=== PATIENT | female | born 1945 | race Caucasian/White ===

== ENCOUNTER → 2019-08-29 | Outpatient (CLI) | payer OTHER ==
--- NOTE | 2019-08-30 09:19 | PF ---
[address] [address] PULMONARY FUNCTION REPORT Name: JASVIR DEVLIN Room: [facility]#: [id number] Admission: 08/29/19 Attend Phys: Shelli Mascorro MD, Discharge: Date of : 49 Report #: [id number] THIS REPORT FOR: //name// [facility] DATE OF SERVICE: 08/29/2019 REQUESTING PHYSICIAN: Gabriele Mascorro MD, [facility] SPIROMETRY: Reveals a normal FEV1 of 1.81, which was 86% of predicted. FVC of 2.18. FEV1/FVC ratio was 83%. Mid flows are normal. No change after inhaled bronchodilator. Lung volumes by plethysmography revealed a mild decrease in the TLC to 3.43, which was 72% of predicted. Diffusion capacity was normal. IMPRESSION: Mild restrictive process. There is no evidence of significant obstruction. Some of this may be related to body habitus. <ELECTRONICALLY SIGNED> By: Soha Wheeler MD 08/30/19 0919 [id number] Wheeler MD /nt
== END ==
LOC: M.PUL 10:27
DX: R06.09 Other forms of dyspnea (principal)